=== PATIENT | male | born 1985 | race Caucasian/White ===

== ENCOUNTER 2018-06-10 09:11 | Inpatient (IN) | payer MEDICARE, MEDICAID ==
[~2018-06-10] VITALS: Ht 175.3 cm; Wt 77.6 kg
[2018-06-10 09:15] VITALS: BP 127/87
--- NOTE | 2018-06-10 10:58 | NUR ---
[facility] BEING CALLED FOR PT.
[2018-06-10 13:16] VITALS: BP 121/76
[2018-06-10 20:15] VITALS: BP 146/92
--- NOTE | 2018-06-10 20:54 | NUR ---
ARRRIVED FROM PACU DROWSY. MOM AT BEDSIDE. ASSESSMENT AND DONE CHARTED. RIGHT TOES WARM AND PINK WITH GOOD CAPILLARY REFILL. PATIENT ABLE WIGGLE TOES WHEN ASKED. NO C/O N/V. BED ALARM ON AT THIS TIME. CALL LIGHT WITHIN REACH. ORIENTED TO ROOM AND BED CONTROLS.
[2018-06-11 01:00] VITALS: BP 141/91
[2018-06-11 03:00] LABS: HEMATOCRIT 44.3 % (42.0-52.0); HEMOGLOBIN 14.8 gm/dL (14.0-18.0); MCH 30.6 pg (26.0-34.0); MCHC 33.4 g/dL (28.0-37.0); MCV 91.7 fL (80.0-100.0); MPV 8.8 fl. (7.2-11.1); RBC 4.83 mil/uL (4.50-6.00); RDW-CV 12.8 % (10.5-14.5); WBC 29.6 thou/uL (4.0-11.0)
[2018-06-11 03:04] LABS: CALCIUM 8.7 mg/dL (8.5-10.1); CREATININE 1.2 mg/dL (0.6-1.3); MAGNESIUM 1.7 mg/dL (1.8-2.4); POTASSIUM 3.6 mmol/L (3.5-5.1)
[2018-06-11 03:15] VITALS: BP 126/82
--- NOTE | 2018-06-11 06:13 | NUR ---
RESTING QUIETLY IN BED AT THIS TIME. NAUSEA MEDICATION GIVEN X1 FOR N/V AND HELPFUL. IV PAIN MEDICATION GIVEN X1 AND HELPFUL AND THEN PO PAIN MEDICATION GIVEN AND PATIENT SLEEPING. RIGHT TOES WARM AND PINK AND PATIENT ABLE TO WIGGLE TOES. MOM AT BEDSIDE. HAS ORDER FOR 50% WEIGHTBEARING TO RIGHT LOWER EXTREMITY. BED ALARM ON AND CALL LIGHT WITHIN REACH.
[2018-06-11 07:39] LABS: HEMATOCRIT 43.7 % (42.0-52.0); HEMOGLOBIN 14.8 gm/dL (14.0-18.0); MCH 30.8 pg (26.0-34.0); MCHC 33.8 g/dL (28.0-37.0); MCV 91.1 fL (80.0-100.0); MPV 8.4 fl. (7.2-11.1); NUCLEATED RBCS 0 /100WBC; PLATELET COUNT* 357 thou/uL (150-400); RDW-CV 13.1 % (10.5-14.5); WBC 25.3 thou/uL (4.0-11.0)
[2018-06-11 08:00] VITALS: BP 140/91
[2018-06-11 08:16] LABS: ABSOLUTE LYMPHOCYTES 1.5 thou/uL (0.8-5.3); ABSOLUTE MONOCYTES 2.3 thou/uL (0.0-1.2); ABSOLUTE NEUTROPHILS 21.5 thou/uL (1.6-8.1)
[2018-06-11 08:17] LABS: PLATELET ESTIMATE ADEQUATE
[2018-06-11 08:20] LABS: GIANT PLATELETS RARE; LARGE PLATELETS OCCASIONAL
[2018-06-11 08:21] LABS: POLYCHROMASIA 1+
--- NOTE | 2018-06-11 14:29 | NUR ---
CM SPOKE TO THE PATIENT AND HIS MOTHER FLAVIO TO DISCUSS THE PATIENTS HOME SITUATION, DISCHARGE PLANNING, AND TO INFORM OF THE ROLE OF CM. PATIENT ALERT, ORIENTED, AND NORMALLY INDEPENDENT WITH ADL'S. PATIENT RESIDES AT HOME ALONE. PATIENTS MOTHER INFORMS THAT THE PATIENT HAS A DEVELOPMENTAL DELAY AND USES CAREGIVER SERVICES AT HOME ([facility]), AND A FARM OR [employer]IMAL CARETAKER ASSIST HIM 12 HRS PER WK WITH COOKING, CLEANING, AND TRANSPORTATION. PATIENT ABLE TO BATHE AND DRESS HIMSELF. PATIENT USE 0 DME. PATIENT HAS NO HX OF HH OR SNF. PATIENT'S MOTHER INFORMS THAT SHE IS HOPEFUL THAT THE PATIENT IS 'ALLOWED TO DO HIS THERAPY ON THE INPATIENT REHAB UNIT HERE IN THE HOSPITAL'. PT/OT IS ORDERED, BUT PATIENT HAS NOT WORKED WITH THE THERAPIES AT THIS POINT. CM WILL REMAIN AVAILABLE TO ASSIST AND FOLLOW NEEDED.
[2018-06-11 16:00] VITALS: BP 132/85
--- NOTE | 2018-06-11 21:00 | NUR ---
I ASSUMED CARE OF THE PATIENT AT 0700. HE IS ALERT AND ORIENTED X4 AND UP WITH MAX ASSIST OF 2 AND WALKER/GAIT BELT. HOURLY ROUNDING WAS COMPLETED AND PATIENT NEEDS ARE MET. REHAB CONSULT WAS MADE AND HE WAS SEEN BY CASE MANAGEMENT. PAIN IS MANAGED WITH PRN MEDS. BED IS IN THE LOW LOCKED POSITION AND CALL LIGHT IS IN REACH. BED ALARM IS ON. MAGNESIUM WAS REPLACED. PATIENT IS IN NEED OF ADDITIONAL REHAB PRIOR TO BEING SENT HOME ALONE. WILL CONTINUE TO MONITOR.
[2018-06-11 21:30] VITALS: BP 121/84
[2018-06-11 23:53] VITALS: BP 128/78
[2018-06-12 04:15] VITALS: BP 111/71
--- NOTE | 2018-06-12 04:54 | NUR ---
ALERT AND ORIENTED X4. RESTING QUIETLY IN BED ALL NIGHT. VOIDING USING URINAL. PO PAIN MEDICATION GIVEN X1 AND HELPFUL. NO C/O NAUSEA. RIGHT TOES WARM AND PINK WITH GOOD CAPILLARY REFILL. PATIENT ABLE TO WIGGLE TOES. JOSE J WRAP DRESSING REMAINS INTACT. CALL LIGHT WITHIN REACH. BED ALARM ON.
[2018-06-12 06:09] LABS: HEMATOCRIT 41.2 % (42.0-52.0); MCH 31.1 pg (26.0-34.0); MCV 91.4 fL (80.0-100.0); MPV 8.5 fl. (7.2-11.1); RBC 4.51 mil/uL (4.50-6.00); WBC 21.1 thou/uL (4.0-11.0)
[2018-06-12 06:18] LABS: CALCIUM 8.4 mg/dL (8.5-10.1); MAGNESIUM 2.1 mg/dL (1.8-2.4); POTASSIUM 3.3 mmol/L (3.5-5.1); TOTAL BILIRUBIN 0.5 mg/dL (<0.1-1.0); TOTAL PROTEIN 7.2 g/dL (6.4-8.2)
[2018-06-12 08:21] VITALS: BP 117/81
[2018-06-12 11:01] LABS: URINE BILIRUBIN NEGATIVE (Negative); URINE BLOOD NEGATIVE (Negative); URINE CLARITY CLOUDY; URINE COLOR YELLOW; URINE GLUCOSE-RANDOM NEGATIVE (Negative); URINE KETONES NEGATIVE (Negative); URINE LEUKOCYTES-REFLEX NEGATIVE (Negative); URINE NITRITE-REFLEX NEGATIVE (Negative); URINE PROTEIN NEGATIVE (Negative); URINE SPECIFIC GRAVITY 1.015 (1.005-1.030)
[2018-06-12 11:53] LABS: MUCUS >6 Heavy strn/LPF (None Seen)
[2018-06-12 11:54] LABS: AMORPHOUS URATES Many /LPF (None Seen); COARSE GRANULAR CASTS 0-3 Few /LPF (None Seen); FINE GRANULAR CASTS 0-3 Few /LPF (None Seen); SQUAMOUS 0-3 Few /LPF (0-3)
[2018-06-12 11:55] LABS: BACTERIA-REFLEX 1-9 Few /HPF (None Seen); URINE RBC None Seen /HPF (0-2); URINE WBC-REFLEX None Seen /HPF (0-5)
[2018-06-12 16:15] VITALS: BP 127/80
--- NOTE | 2018-06-12 18:16 | NUR ---
I ASSUMED CARE OF THE PATIENT AT 0700. HE IS ALERT AND ORIENTED X4 AND IS UP WITH MAX ASSIST OF 2 AND A WALKER. BED IS IN THE LOW LOCKED POSITION AND CALL LIGHT IS IN REACH. HOURLY ROUNDING WAS COMPLETED AND PATIENT NEEDS ARE MET. PAIN IS MANAGED WITH PRN MEDS. THERAPY CONTINUED TO WORK WITH THE PATIENT AND HE PLANS TO BE MOVED TO REHAB ON WEDNESDAY. POTASSIUM WAS REPLACED. WILL CONTINUE TO MONITOR.
[2018-06-12 21:00] VITALS: BP 117/83
[2018-06-13 04:13] LABS: HEMATOCRIT 41.8 % (42.0-52.0); HEMOGLOBIN 14.2 gm/dL (14.0-18.0); MCHC 33.9 g/dL (28.0-37.0); MCV 91.4 fL (80.0-100.0); MPV 8.8 fl. (7.2-11.1); RBC 4.57 mil/uL (4.50-6.00); RDW-CV 12.9 % (10.5-14.5); WBC 20.1 thou/uL (4.0-11.0)
[2018-06-13 04:24] VITALS: BP 139/78
[2018-06-13 05:00] LABS: CALCIUM 8.4 mg/dL (8.5-10.1); CREATININE 0.9 mg/dL (0.6-1.3); TOTAL BILIRUBIN 0.7 mg/dL (<0.1-1.0); TOTAL PROTEIN 6.9 g/dL (6.4-8.2)
--- NOTE | 2018-06-13 05:03 | NUR ---
ALERT AND ORIENTED X4. RESTED QUIETLY THROUGHOUT NIGHT IN BED. RIGHT TOES WARM AND PINK WITH GOOD CAPILLARY REFILL. ABLE TO WIGGLE TOES OF RIGHT FOOT. JOSE J WRAP DRESSING REMAINS INTACT OVER RIGHT LEG. CALL LIGHT WITHIN REACH. BED ALARM ON.
[2018-06-13 08:49] VITALS: BP 135/69
--- NOTE | 2018-06-13 13:40 | NUR ---
RECEIVED CONSULT FOR POSSIBLE REHAB ADMISSION. CONSULT HAS BEEN ACKNOWLEDGED BY FITTER HELPER AND DR. KNUTSON. PATIENT WITH TIB/FIB FX S/P INTERNAL FIXATION WITH NAILING. OT/ST EVALUATIONS ARE PENDING. PT HAS SEEN AND EVALUATED PATIENT AND FOUND TO HAVE REHAB NEEDS. PATIENT WILL MOST LIKELY NEED REHAB PRIOR TO DISCHARGE HOME. AWAIT OT/ST EVALUATIONS. THANK YOU FOR THIS CONSULT.
[2018-06-13] MEDS ORDERED: HYDROCODON-ACE1 EAC7 PO (14:55)
[2018-06-13] MEDS ORDERED: ASPIR-TRIN325 MG PO (14:57)
[2018-06-13] MEDS ORDERED: ULTRAM 50MG TAB50 MG PO (14:58)
--- NOTE | 2018-06-13 15:27 | NUR ---
ASSUMED CARES OF PT AT 0700. PT IN BED ASLEEP, BED IN LOW LOCKED POSITION. BED ALARM ON FOR PT SAFETY. PT A&O X4, MILD MENTAL DEFICIT R/T CHILDHOOD FEVER. PT LIVES INDEPENDENTLY, A BLOCK FROM HIS MOTHER, RECENTLY MOVED OUT ON HIS OWN FROM MOTHERS HOME. HRRR PER AUSCULTATION, OCC. TACHYCARDIC, LCTAB, VSS ON RA. PAIN RATED PER PT STATEMENT TOLERABLE, PAIN MEDS GIVEN PRIOR TO THERAPY. AFEBRILE, PERRLA, SKIN INTACT WITH TATTOO AND RIGHT LEG WRAPPED WITH JOSE J BANDAGE. SCD IN PLACE ON LEFT LEG. NO IV AT THIS TIME. CONSULTS PT, OT, [facility] TWO DAYS AGO , 06/11/18. UP ONE ASSIST WITH WALKER, 50% WB. PT HAS TREMORS R/T DISABILITY FROM FEVERS CHILD. RODS AND SCREWS PLACED IN RIGHT LEG. 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 PT PROGRESSING TOWARDS GOAL. PT PLEASANT AND COOPERATIVE. HOURLY ROUNDING CONTINUES. PT TO TRANSFER TO REHAB/ROOM 324, ATTEMPTED TO CALL MOTHER, LEFT MESSAGE ON ANSWERING MACHINE.
--- NOTE | 2018-06-13 16:28 | NUR ---
REPORT TO ALESSIO IN REHAB ON PT TO DISCHARGE TO REHAB. FAMILY AT BEDSIDE. PT EDUCATED ON TRANSFER AND THERAPIES. PT REMAINS STABLE.
--- NOTE | 2018-06-13 16:32 | NUR ---
PT DISCHARGED TO REHAB, ROOM 324 AT 1635 VIA CHAIR.
--- NOTE | 2018-06-30 12:46 | CON ---
[address] [address] CONSULTATION Name: SONDRA CASTILLO Room: [address] IN M.R.#: [id number] Admission: 06/10/18 Attend Phys: Rachelle Agustin MD Discharge: 06/13/18 Date of : 89 Report #: [id number] THIS REPORT FOR: //name// CC: Marito Agustin REASON FOR CONSULTATION: Evaluation and recommendations regarding post-acute rehabilitation in a 32-year-old status post fall from standing height in his home sustaining a tibial and fibular fracture. He has known cerebellar ataxia with frequent falls. However, he did have some right lower extremity pain after falling and was brought to the Emergency Department and found to have a fracture of the right tibia and fibula and is status post surgical interventions for that. Previous level of function was modified independent to independent with activities of daily living. Current level of function is minimum to moderate assistance of 1-2 depending on therapy, activity and time of day. PAST MEDICAL HISTORY: Cerebellar ataxia, closed fibular fracture, falls and tibial fracture. ALLERGIES: No known drug allergies. Vital signs, medication and diagnostics are all reviewed at this time. PAST MEDICAL HISTORY: Cerebellar atrophy. FAMILY HISTORY: Insignificant. SOCIAL HISTORY: No tobacco, alcohol or illicit drug use. REVIEW OF SYSTEMS: A 14-point review of systems is done today and is negative except as mentioned in the HPI specifically no fever, chest pain, shortness of breath, abdominal pain or distention. PHYSICAL EXAMINATION: GENERAL: Alert, oriented and in no apparent distress. VITAL SIGNS: Reviewed and are stable. HEENT: Head is atraumatic and normocephalic. Pupils are equal, round and reactive. ABDOMEN: Soft, nontender and nondistended. NEUROLOGIC: Cranial nerves 2 through 12 are grossly intact with no focal neuro deficits, 5/5 strength in the bilateral upper and lower extremities. SKIN: Warm and dry. No rashes or lesions noted. PLAN: 1. Recommend acute inpatient rehabilitation to facilitate safe discharge to the home setting where he was previously modified independent to independent [place] [address] CONSULTATION Name: SONDRA CASTILLO Room: [address] IN .R.#: [id number] Admission: 06/10/18 Attend Phys: Rachelle Agustin MD Discharge: 06/13/18 Date of : 89 Report #: [id number] 2. Ongoing daily medical care. 3. Wound care as needed. <ELECTRONICALLY SIGNED> By: Bren Bahena DO 06/30/18 1246 1606 [id number] Bahena DO /nt
--- NOTE | 2018-08-10 08:08 | OP ---
[address] [address] OPERATIVE REPORT Name: SONDRA CASTILLO Room: [address] IN M.R.#: [id number] Admission: 06/10/18 Attend Phys: Rachelle Agustin MD Discharge: 06/13/18 Date of : 89 Report #: [id number] THIS REPORT FOR: //name// CC: Marito Agustin DICTATED BY: Bert Jalloh DO DATE OF SERVICE: 06/10/2018 PREOPERATIVE DIAGNOSIS: Right distal one-third tibial shaft fracture. POSTOPERATIVE DIAGNOSIS: Right distal one-third tibial shaft fracture. PROCEDURE PERFORMED: Closed reduction and intramedullary nailing of right tibial shaft fracture with the following implants. 1. A 9 x 315 mm tibial nail. 2. A 5 x 37.5 screws x 2; 5 x 55 mm screw, 5 x 52.5 mm screw. SURGEON: Jakob Sutton DO. CRUISE STAFF MEMBER: Vandana Jalloh DO; Abelardo Anderson DO. ANESTHESIA: General. ESTIMATED BLOOD LOSS: 75 mL. SPECIMENS: None. COMPLICATIONS: None. INDICATIONS FOR PROCEDURE: The patient is a 32-year-old male who unfortunately had a fall earlier this morning. He had immediate pain, was unable to bear weight. He was brought to [facility] ED via EMS. X-rays were obtained which showed a distal one-third tibial shaft fracture. Our service was thus consulted for treatment recommendations. We recommended an intramedullary nail and he agreed. DESCRIPTION OF PROCEDURE: The patient was seen in the preoperative area. Risks, benefits, and alternatives of the procedure were discussed. He understood and agreed to proceed. Written consent was obtained. The operative site was marked. The patient was brought back to the operative suite and placed supine on a well-padded operative table. He was given the benefit of general anesthesia. The right lower extremity was prepped and draped in a normal sterile fashion. A surgical timeout was performed where the site, side and procedure were verified. Everyone present was [place] [address] OPERATIVE REPORT Name: SONDRA CASTILLO Room: [address] IN ..#: [id number] Admission: 06/10/18 Attend Phys: Rachelle Agustin MD Discharge: 06/13/18 Date of : 89 Report #: [id number] began with inflation of the tourniquet to 300 mmHg. A standard suprapatellar approach was performed. Sharp dissection was taken through the skin down to the level of the quad tendon. A new knife was then used to perform an arthrotomy from the superior pole of the patella proximal. The sleeve was inserted into the joint. C-arm was used to confirm the appropriate starting position, which was just medial to the lateral tibial spine and just anterior to the articular margin of the tibia. A guidewire was inserted. The opening reamer was used. A ball-tipped guidewire was then inserted past the fracture site down to the distal tibia. Fluoroscopy was used to ensure that the ball-tipped guidewire remained in the medullary canal. We then began reaming sequentially and ended at a 10.5. We measured off the ball-tipped guidewire and then measured to approximately 315 mm. The appropriate nail was opened. This was inserted again using fluoroscopy to maintain fracture reduction as well as ensure the tibial nail was in appropriate position. Once this was confirmed, the proximal aiming arm was secured into position. We then used this to drill our 2 proximal oblique locking screws. A small incision was made through the skin and the 3-in-1 sleeve was secured down to bone. The drill was used to drill bicortically. The screw was measured into place. This was confirmed on fluoroscopy. Again, this was done for the other oblique interlocking screw. A small incision was made in the skin and the 3-in-1 guide was secured into place. The bone was drilled and the appropriate length screw was inserted. We then turned our attention to the distal portion of the nail where perfect circles were performed. Small incisions were made through the skin and the distal tibia was drilled. The appropriate level screws were inserted x 2. Once this was done, final x-rays were obtained. These were saved to the PACS system. The wounds were thoroughly irrigated. The capsule was closed with a #1 Vicryl in a [id number] fashion. The skin was closed with 2-0 Vicryl in a simple inverted interrupted fashion. This was reinforced with bill. Sterile dressings were applied including Xeroform, 4 x 4s, soft roll and Alan wrap. The patient was awoken from anesthesia and transferred to PACU in stable condition. There were no obvious complications. He was started on aspirin 325 b.i.d. and made a 25% weightbearing. <ELECTRONICALLY SIGNED> By: Kodak Calvo DO 08/10/18 0808 1514 1536Jakob Sutton DO /bang
== END 2018-06-13 16:34 | DRG 493 ==
LOC: M.ERS 09:11 → M.TBA-ER 11:59 → M.ORTHSURG 11:59
PROVIDERS: Orthopaedic Surgery; ADMIT Internal Medicine
PROC: 0QSG34Z Reposition Right Tibia with Internal Fixation Device, Percutaneous Approach (ICD-10-PCS; principal; 2018-06-10)
DX: S82.301A Unspecified fracture of lower end of right tibia, initial encounter for closed fracture (principal); G11.9 Hereditary ataxia, unspecified; E44.1 Mild protein-calorie malnutrition; F79 Unspecified intellectual disabilities; S82.401A Unspecified fracture of shaft of right fibula, initial encounter for closed fracture; D72.829 Elevated white blood cell count, unspecified; Z79.899 Other long term (current) drug therapy; Z68.25 Body mass index [BMI] 25.0-25.9, adult; W18.39XA Other fall on same level, initial encounter; Y93.89 Activity, other specified; Y92.098 Other place in other non-institutional residence as the place of occurrence of the external cause; Y99.8 Other external cause status

== ENCOUNTER 2018-06-13 15:48 | Inpatient (IN) | payer MEDICARE, MEDICAID ==
[~2018-06-13] VITALS: Ht 175.3 cm; Wt 75.1 kg
--- NOTE | ~2018-06-13 | H ---
[address] [address] HISTORY AND PHYSICAL Name: SONDRA CASTILLO Room: [address] IN .R.#: [id number] Admission: 06/13/18 Attend Phys: Bren Bahena DO Discharge: 06/30/18 Date of : 89 Report #: [id number] THIS REPORT FOR: //name// For History and Physical please refer to the handwritten note in the patient's medical record. By: [facility]6Medical Records Staff LORETTA /CLAUDIA
[~2018-06-13 15:48] MED LIST: ASPIR-TRIN325 MG PO; HYDROCODON-ACE1 EAC7 PO; ULTRAM 50MG TAB50 MG PO
[2018-06-13 16:47] VITALS: BP 123/70
[2018-06-13 19:51] VITALS: BP 128/76
[2018-06-14 04:31] LABS: HEMATOCRIT 39.3 % (42.0-52.0); HEMOGLOBIN 13.1 gm/dL (14.0-18.0); MCHC 33.4 g/dL (28.0-37.0); MCV 92.8 fL (80.0-100.0); RBC 4.23 mil/uL (4.50-6.00); WBC 15.6 thou/uL (4.0-11.0)
[2018-06-14 04:58] LABS: CALCIUM 8.8 mg/dL (8.5-10.1); POTASSIUM 3.8 mmol/L (3.5-5.1)
[2018-06-14 08:23] VITALS: BP 136/85
[2018-06-14 20:30] VITALS: BP 129/80
[2018-06-15 08:00] VITALS: BP 130/86
[2018-06-15 20:26] VITALS: BP 143/75
[2018-06-16 07:54] VITALS: BP 128/76
[2018-06-16 20:16] VITALS: BP 130/82
[2018-06-17 08:01] VITALS: BP 115/64
[2018-06-17 14:59] LABS: URINE BILIRUBIN NEGATIVE (Negative); URINE BLOOD TRACE (Negative); URINE CLARITY CLEAR; URINE COLOR YELLOW; URINE GLUCOSE-RANDOM NEGATIVE (Negative); URINE KETONES NEGATIVE (Negative); URINE LEUKOCYTES-REFLEX NEGATIVE (Negative); URINE NITRITE-REFLEX NEGATIVE (Negative); URINE PROTEIN NEGATIVE (Negative)
[2018-06-17 20:14] VITALS: BP 127/79
[2018-06-18 08:13] VITALS: BP 114/56
[2018-06-18 20:10] VITALS: BP 119/76
[2018-06-19 08:19] VITALS: BP 112/63
[2018-06-19 19:30] VITALS: BP 129/77
[2018-06-20 07:35] VITALS: BP 120/80
--- NOTE | 2018-06-20 14:23 | 2DMMODE ---
[place] [address] 2 D/M-MODE ECHOCARDIOGRAM Name: SONDRA CASTILLO Room: [facility]- ADM IN Deepak#: [id number] Admission: 06/13/18 Attend Phys: Bren Bahena DO Discharge: Date of : 89 Date of Service: 06/20/18 1422 Report #: [id number] THIS REPORT FOR: //name// APPROVED REPORT Study performed: 06/20/2018 13:38:36 EXAM: Comprehensive 2D, Doppler, and color-flow Echocardiogram Patient Location: In-Patient Room #: [facility] Status: routine BSA: 1.93 HR: 93 bpm BP: 120/80 mmHg Other Information Study Quality: Good Indications Abnormal ECG 2D Dimensions LVEF(%): 80.47 (>50%) IVSd: 9.89 (7-11mm) LVOT Diam: 20.14 (18-24mm) LVDd: 39.55 mm PWd: 8.93 (7-11mm) Ascending Ao: 25.67 (22-36mm) LVDs: 20.35 (25-40mm) Aortic Root: 22.33 mm Fuentes's LVEF: 80.47 % Volumes Left Atrial Volume (Systole) LA ESV Index: 12.80 mL/m2 Aortic Valve AoV Peak Rafa.: 1.30 m/s AO Peak Gr.: 6.78 mmHg LVOT Max P.03 mmHg AO Mean Gr.: 3.75 mmHg LVOT Mean P.09 mmHg LVOT Max V: 1.33 m/s AO V2 VTI: 21.62 cm LVOT Mean V: 0.79 m/s WIHTNEY (VTI): 3.38 cm2 LVOT V1 VTI: 22.90 cm Mitral Valve E/A Ratio: 1.19 MV Decel. Time: 165.76 [place] [address] 2 D/M-MODE ECHOCARDIOGRAM Name: SONDRA CASTILLO Room: [address] IN .R.#: [id number] Admission: 06/13/18 Attend Phys: Bren Bahena DO Discharge: Date of : 89 Date of Service: 06/20/18 1422 Report #: [id number] MV E Max Rafa.: 0.80 m/s MV PHT: 48.07 ms MVA (PHT): 4.58 cm2 TDI E/Lateral E': 6.15 E/Medial E': 8.00 Medial E' Rafa.: 0.10 m/s Lateral E' Rafa.: 0.13 m/s Pulmonary Valve PV Peak Rafa.: 1.15 m/s PV Peak Gr.: 5.31 mmHg Left Ventricle The left ventricle is normal size. There is normal LV segmental wall motion. There is normal left ventricular wall thickness. Left ventricular systolic function is normal. The left ventricular ejection fraction is within the normal range. LVEF is 55-60%. The left ventricular diastolic function is normal. Right Ventricle The right ventricle is normal size. The right ventricular systolic function is normal. Atria The left atrium size is normal. The right atrium size is normal. Aortic Valve The aortic valve is normal in structure. No aortic regurgitation is present. There is no aortic valvular stenosis. Mitral Valve The mitral valve is normal in structure. There is no mitral valve regurgitation noted. No evidence of mitral valve stenosis. Tricuspid Valve The tricuspid valve is normal in structure. Trace tricuspid regurgitation. Pulmonic Valve The pulmonary valve is normal in structure. There is no pulmonic valvular regurgitation. Great Vessels The aortic root is normal in size. IVC is normal in size and collapses with >50% [place] [address] 2 D/M-MODE ECHOCARDIOGRAM Name: SONDRA CASTILLO Room: [address] IN [facility].#: [id number] Admission: 06/13/18 Attend Phys: Bren Bahena DO Discharge: Date of : 89 Date of Service: 06/20/18 1422 Report #: [id number] Pericardium There is no pericardial effusion. <Conclusion> Left ventricular systolic function is normal. The left ventricular ejection fraction is within the normal range. <ELECTRONICALLY SIGNED> By: Osmani Baig MD, FACC 06/20/18 142 21 142 Osmani Baig MD, FACC /INF
--- NOTE | 2018-06-20 18:22 | CON ---
[address] [address] CONSULTATION Name: SONDRA CASTILLO Room: [address] IN M.R.#: [id number] Admission: 06/13/18 Attend Phys: Bren Bahena DO Discharge: Date of : 89 Report #: [id number] THIS REPORT FOR: //name// CC: Marito Bahena DATE OF SERVICE: 06/20/2018 HISTORY OF PRESENT ILLNESS: The patient is a 32-year-old male who I was asked to see in the hospital today after he was noted to be tachycardic. The history is obtained from the patient as well as the current chart. The patient has a history of cerebellar ataxia and is not very active. He does have some mental issues apparently. He apparently fell last week and fractured his tibia and fibula. He required surgery. He was transferred to rehabilitation. Apparently, the patient does live independently. However, he does have frequent falls. He was noted to be tachycardic. Cardiology consultation was requested. The patient denies a history of heart disease. He denies any chest pain, shortness of breath, palpitations, loss of consciousness, edema. PAST MEDICAL HISTORY: He has had no major surgical procedures. MEDICATIONS: He was on no medication. ALLERGIES: He has no known drug allergies. FAMILY HISTORY: Negative for heart disease. SOCIAL HISTORY: He is single. Apparently he did go to high school. He denies smoking. Rarely drinks alcohol. REVIEW OF SYSTEMS: No history of stroke, asthma, peptic ulcer disease, liver disease, kidney disease or cancer. PHYSICAL EXAMINATION: GENERAL: Revealed a young male sitting in a chair. He appeared in no distress. VITAL SIGNS: He had a blood pressure of 120/70, pulse is 100. He is afebrile. HEENT: He is anicteric. Conjunctivae pink. Mucous membranes moist. NECK: Veins do not appear distended. CHEST: Clear to auscultation. CARDIAC: Regular rate and rhythm. No significant murmur. ABDOMEN: Soft. EXTREMITIES: No edema. SKIN: Warm and dry. NEUROLOGIC: Nonfocal. DIAGNOSTIC DATA: No ECGs available in the chart. [place] [address] CONSULTATION Name: SONDRA CASTILLO Nancy Room: [address] IN [facility]#: [id number] Admission: 06/13/18 Attend Phys: Bren Bahena DO Discharge: Date of : 89 Report #: [id number] was admitted last week that included a chest x-ray that showed normal heart size and clear lung ackerman. LABORATORY DATA: Last week, sodium 138, BUN 12, creatinine 0.9. Albumin is 3.0. His white blood cell count 17,000, hemoglobin 12.3. IMPRESSION AND RECOMMENDATIONS: 1. Sinus tachycardia. I would check echocardiogram and thyroid function studies. 2. History of cerebellar ataxia. 3. Recent leg fracture. 4. Recurrent falls. <ELECTRONICALLY SIGNED> By: Osmani Baig MD, [facility] 06/20/18 1822 0954 1318David Kate Baig MD, [facility] /nt
[2018-06-20 19:30] VITALS: BP 138/73
[2018-06-21 08:24] VITALS: BP 101/59
--- NOTE | 2018-06-21 17:21 | EKG ---
[place] [address] ELECTROCARDIOGRAM REPORT Name: SONDRA CASTILLO Room: [address] ADM IN M.R.#: [id number] Admission: 06/13/18 Attend Phys: Bren Bahena DO Discharge: Date of : 89 Report #: [id number] THIS REPORT FOR: //name// [facility] Test Date: 2018-06-21 Test Time: 10:40:38 Pat Name: SONDRA CASTILLO Department: Room: [address] Gender: M [employer] Detective: : 1985 Requested By: Osmani Baig Order Number: [id number] Ruth MD: Taj Hamilton Measurements Intervals [place] Rate: 95 P: 35 HI: 123 QRS: -9 QRSD: 89 T: 19 QT: 333 QTc: 419 Interpretive Statements Sinus rhythm No previous ECG available for comparison Electronically Signed On 06-21-2018 17:21:25 CDT by Taj Hamilton [email or web address] <ELECTRONICALLY SIGNED> By: Taj Hamilton MD, [facility] 06/21/18 1721 1040 1040 Taj Hamilton MD, [facility] /EPI
[2018-06-21 19:30] VITALS: BP 130/78
[2018-06-22 03:54] LABS: HEMOGLOBIN 12.8 gm/dL (14.0-18.0); MCH 30.4 pg (26.0-34.0); MCHC 32.9 g/dL (28.0-37.0); MCV 92.6 fL (80.0-100.0); MPV 7.6 fl. (7.2-11.1); RBC 4.21 mil/uL (4.50-6.00); RDW-CV 13.2 % (10.5-14.5); WBC 16.6 thou/uL (4.0-11.0)
[2018-06-22 07:30] VITALS: BP 117/66
[2018-06-22 20:09] VITALS: BP 113/73
[2018-06-23 08:25] VITALS: BP 121/66
[2018-06-23 19:30] VITALS: BP 125/74
[2018-06-24 08:00] VITALS: BP 118/77
[2018-06-24 19:45] VITALS: BP 125/75
[2018-06-25 08:00] VITALS: BP 141/84
[2018-06-25 19:35] VITALS: BP 127/75
[2018-06-26 08:00] VITALS: BP 116/65
[2018-06-26 19:30] VITALS: BP 115/70
[2018-06-27 08:00] VITALS: BP 116/72
[2018-06-27 19:45] VITALS: BP 132/80
[2018-06-28 08:00] VITALS: BP 102/50
[2018-06-28 19:50] VITALS: BP 124/80
[2018-06-29 08:10] VITALS: BP 113/70
[2018-06-29 14:53] VITALS: BP 113/70
[2018-06-29 19:20] VITALS: BP 117/73
[2018-06-30 08:00] VITALS: BP 113/70
[2018-06-30 10:27] VITALS: BP 113/70
[2018-06-30] MEDS ORDERED: CALCIUM 600 +1 EAC1 PO (10:54)
[2018-06-30] MEDS ORDERED: TYLENOL325 MG PO (10:55)
--- NOTE | 2018-07-17 08:15 | PLAN ---
[address] [address] REHAB UNIT PLAN OF CARE Name: SONDRA CASTILLO Room: [address] IN .R.#: [id number] Admission: 06/13/18 Attend Phys: Bren Bahena DO Discharge: 06/30/18 Date of : 89 Report #: [id number] THIS REPORT FOR: //name// CC: Marito Bahena This is a 32-year-old male admitted to inpatient rehabilitation to facilitate safe discharge home, status post traumatic fracture of the right tibia and fibula, who is currently 25% weightbearing per Dr. Sutton. Previous level of function was independent to modified independent with activities of daily living. Current level of function is minimum to moderate assistance depending on therapy, activity and time of day. He does have cerebellar ataxia, which does complicate his ambulation. Medical prognosis is good. Rehabilitation prognosis is good. Estimated length of stay is 12-14 days with discharge disposition to the home setting with supportive caregivers and family. He does have multiple medical comorbidities as well. Physical Therapy will see the patient 60-90 minutes per day, 5 days per week, working on upper and lower body strength, balance, coordination. Occupational Therapy will work with the patient 60-90 minutes per day, 5 days per week, working on upper and lower body strength, balance, coordination, navigation, bathing, dressing, and toileting. At this time, no significant speech pathology needs have been noted. This is an overall plan of care, may change from time to time. We will team him weekly and make changes to plan of care as needed. <ELECTRONICALLY SIGNED> By: Bren Bahena DO 07/17/18 0815 1303 1324Bren Bahena DO /nt
--- NOTE | 2018-07-17 08:16 | D ---
[address] [address] DISCHARGE SUMMARY Name: SONDRA CASTILLO Room: [address] IN M.R.#: [id number] Admission: 06/13/18 Attend Phys: Bren Bahena DO Discharge: 06/30/18 Date of : 89 Report #: [id number] THIS REPORT FOR: //name// CC: Marito Bahena DISCHARGE DIAGNOSES: Right displaced tibial fracture and a proximal fibular fracture. DISCHARGE DISPOSITION: To home with home health PT, OT and nursing. FOLLOWUP: With orthopedic surgery as previously set up and his primary care physician within one week. Notifications for physician were given. Regular diet. Monitor weight gain. Front-wheeled walker for ambulation, 25% weightbearing on the left lower extremity until further notification from orthopedic surgery. No prescriptions were needed at this time. His pain is well controlled. DISCHARGE PHYSICAL EXAMINATION: GENERAL: Alert, oriented, in no apparent distress. VITAL SIGNS: Reviewed and are stable. HEENT: Head atraumatic, normocephalic. Pupils are equal, round, and reactive. ABDOMEN: Soft, nontender, and nondistended. EXTREMITIES: Left lower extremity bill have been removed and the incision is intact. Modified independent status was achieved for 24 hours prior to discharge to home. <ELECTRONICALLY SIGNED> By: Bren Bahena DO 07/17/18 0816 1308 1346DO robert Galvin
== END 2018-06-30 16:16 | disposition home health service (06) | DRG 563 ==
LOC: M.REH 15:48
PROVIDERS: Internal Medicine; ADMIT Physical Medicine & Rehabilitation
DX: S82.301A Unspecified fracture of lower end of right tibia, initial encounter for closed fracture (principal); G11.1 Early-onset cerebellar ataxia; G11.9 Hereditary ataxia, unspecified; R65.10 Systemic inflammatory response syndrome (SIRS) of non-infectious origin without acute organ dysfunction; S82.831A Other fracture of upper and lower end of right fibula, initial encounter for closed fracture; R53.81 Other malaise; W18.39XA Other fall on same level, initial encounter; R29.6 Repeated falls; Y93.89 Activity, other specified; Y92.89 Other specified places as the place of occurrence of the external cause; Y99.8 Other external cause status